=== PATIENT | male | born 1965 | race Caucasian/White ===

== ENCOUNTER 2022-04-17 20:41 | Emergency (ER) | payer MEDICARE ==
[~2022-04-17] VITALS: Ht 175.3 cm; Wt 86.4 kg
[2022-04-17 21:07] VITALS: BP 119/90
== END 2022-04-17 23:30 | disposition left against medical advice (07) ==
LOC: ER 20:43
DX: M79.602 Pain in left arm (principal); Z53.21 Procedure and treatment not carried out due to patient leaving prior to being seen by health care provider

== ENCOUNTER 2022-04-23 19:57 | Emergency (ER) | payer MEDICARE ==
[~2022-04-23] VITALS: Ht 172.7 cm; Wt 75.0 kg
[2022-04-23 20:19] VITALS: BP 116/77
[2022-04-24] MEDS ORDERED: bacitracin 15gm ointment TP ONE (01:20)
[2022-04-24] MEDS ORDERED: BACI28.42 TOP (01:21)
== END 2022-04-24 01:41 | disposition home or self-care (01) ==
LOC: ER 19:58
DX: L02.511 Cutaneous abscess of right hand (principal)
CPT/HCPCS: 99282

== ENCOUNTER 2024-07-20 18:50 | Emergency (ER) | payer MEDICARE ==
[~2024-07-20] VITALS: Ht 172.7 cm; Wt 75.0 kg
[~2024-07-20 18:50] MED LIST: BACI28.42 TOP
[2024-07-20 18:55] VITALS: BP 155/88; PULSE 76; RESP 14; TEMP 98.9; O2SAT 98
== END 2024-07-20 19:33 | disposition left against medical advice (07) ==
LOC: ER 18:51
DX: J00 Acute nasopharyngitis [common cold] (principal); Z53.21 Procedure and treatment not carried out due to patient leaving prior to being seen by health care provider

== ENCOUNTER 2024-10-22 19:36 | Emergency (ER) | payer MEDICARE ==
[~2024-10-22] VITALS: Ht 172.7 cm; Wt 72.7 kg
[2024-10-22 19:52] VITALS: TEMP 98.3
[2024-10-22] MEDS: ondansetron/PF 4mg/2ml inj IV ONE (20:25)
[2024-10-22] MEDS: fentaNYL/PF 50MCG/1 ML 2ML syringe IV ONE (20:27)
[2024-10-22] MEDS: propofol 10mg/ml 20ml vial IV ONE ×2 (20:35→21:38)
[2024-10-22] MEDS: bacitracin 15gm ointment TP STA (20:38)
[2024-10-22] MEDS ORDERED: HYDR-3965 PO (21:16)
[2024-10-22 21:29] VITALS: BP 138/82; PULSE 98; RESP 18; O2SAT 96
== END 2024-10-22 21:35 ==
LOC: ER 19:36
DX: S53.124A Posterior dislocation of right ulnohumeral joint, initial encounter (principal); Z79.899 Other long term (current) drug therapy; Z72.89 Other problems related to lifestyle; X58.XXXA Exposure to other specified factors, initial encounter; Y93.89 Activity, other specified; Y92.89 Other specified places as the place of occurrence of the external cause; Y99.8 Other external cause status
CPT/HCPCS: 24600; 73070; 73080; 96374; 96375; 99284; A4565; A4615; A4620; J2405; J2704; J3010; J7030; 99285

== ENCOUNTER 2025-02-17 01:36 | Emergency (ER) | payer MEDICARE ==
[~2025-02-17] VITALS: Ht 172.7 cm; Wt 65.0 kg
[2025-02-17 01:43] VITALS: BP 150/96; PULSE 61; RESP 15; TEMP 96.8; O2SAT 97
--- NOTE | 2025-02-17 02:38 | Physician Documentation ---
History of Present Illness ~ General Chief Complaint: See Chief Complaint Stated Complaint: DIZZY FROM NOT EATING Time Seen by MD: 02:34 Primary Medical Doctor: NONE History of Present Illness Initial Comments Patient presents to the emergency room for evaluation of feeling dizzy from not eating. He states he is having problems getting his money from the bank as it had closed. By the time I had seen patient he had eaten a sandwich and states he feels better and would like to go. Medication Reconciliation Allergies: Coded Allergies: No Known Allergies (Unverified , 02/17/25) Scheduled Bacitracin (Bacitracin), 1 APPLIC TOP BID Past Medical History Past Medical History: No Pertinent History Past Surgical History: no surgical history Alcohol Use: Occasionally Drug Use: none Review of Systems ROS All review of systems negative except as per HPI Physical Exam Physical Exam Vital Signs: Temperature: 96.8, Source: Oral, Heart Rate: 61, Respiratory Rate: 15, BP: 150/96, Pulse Oximetry: 97, Weight: 65.000 Physical Exam General: Patient is awake, alert, oriented x4 in no acute distress Head: Normocephalic and atraumatic. Eyes: Conjunctival normal. EOMI. PERRL. ENT: Mucous membranes moist. Neck: Supple, trachea is midline. Chest: Clear to auscultation bilaterally without rales, rhonchi, or wheezes. There is no accessory muscle use or retractions. Cardiac: RRR without murmurs, gallops, or rubs. Progress Results/Orders Results/Orders Vital Signs 02/17/25 01:43 Temp 96.8 Pulse 61 Resp 15 B/P (MAP) 150/96 Pulse Ox 97 Medical Decision Making Findings Patient presented to the emergency room asking for a sandwich as per HPI. He is feeling better after eating and would like to leave. He had not feel emergent labs or imaging is necessary. Vital signs stable Departure Disposition: 01 HOME / SELF CARE / HOMELESS Impression: Primary Impression: General medical examination Condition: Stable Discharge Instructions: General Discharge Instructions Referrals: NO PRIMARY CARE PROVIDER (PCP) Signature Scribe Signature: No scribe Attestation: The note accurately reflects work and decisions made by me.Romain Dos Santos MD 02/17/25 02:38 ROMAIN DOS SANTOS MD Feb 17, 2025 02:38
== END 2025-02-17 02:42 | disposition home or self-care (01) ==
LOC: ER 01:36
DX: Z00.8 Encounter for other general examination (principal); R42 Dizziness and giddiness
CPT/HCPCS: 99281; 99282